=== PATIENT | female | born 2000 | race Caucasian/White ===

== ENCOUNTER 2025-05-17 15:44 | Emergency (ER) | payer MEDICAID ==
[~2025-05-17] VITALS: Ht 167.6 cm; Wt 39.1 kg
[2025-05-17 16:28] VITALS: TEMP 98
[2025-05-17 17:40] LABS: APPEARANCE,URINE CLEAR (CLEAR); BLOOD, URINE NEGATIVE Ery/uL (NEGATIVE); LEUKOCYTE ESTERASE ,URINE NEGATIVE (NEGATIVE); NITRITE, URINE NEGATIVE (NEGATIVE); UGLUCOSE NEGATIVE (NEGATIVE)
[2025-05-17] MEDS: IV NS 0.9% 1,000 ML IV ONE (17:40)
[2025-05-17 17:41] LABS: PREGNANCY TEST URINE QUAL NEGATIVE (NEGATIVE)
[2025-05-17 18:01] LABS: PLATELET COUNT (AUTO) 305 K/uL (150-450); RED BLOOD CELL COUNT(AUTO) 4.53 MIL/uL (4.0-5.2); RED CELL DISTRIBUTION WIDTH 12.6 % (11.5-15.0); WHITE BLOOD COUNT (AUTO) 8.3 K/uL (4.3-11.0)
[2025-05-17 18:09] LABS: CALCIUM, SERUM 9.4 mg/dL (8.5-10.1); CREATININE 0.6 mg/dL (0.6-1.3); SODIUM SERUM 142.0 mmol/L (136-145); UREA NITROGEN, BLOOD 11.0 mg/dL (7-18)
[2025-05-17] MEDS ORDERED: IBUP-1490 PO (18:21)
[2025-05-17] MEDS ORDERED: NITR100C6 PO (18:21)
[2025-05-17 18:44] VITALS: BP 120/78; O2SAT 100
== END 2025-05-17 18:44 | disposition home or self-care (01) ==
LOC: ER 15:58
DX: J02.9 Acute pharyngitis, unspecified (principal)
CPT/HCPCS: 99284; 96360; 71045; 85025; 80048; 87086; 85378; 84703; 81003; 36415; J7030